=== PATIENT | male | born 1965 | race Caucasian/White ===

== ENCOUNTER 2021-04-09 03:25 | Outpatient (CLI) | payer BC, SELFPAY ==
[2021-04-09 09:07] LABS: ESR 11 mm/hr (0-20)
[2021-04-09 09:08] LABS: Abs Immature Grans 0.02 10^3/uL (0.0-0.06); Absolute Basophil Count 0.04 10^3/uL (0.0-0.2); Absolute Monocyte Count 0.45 10^3/uL (0.1-0.8); Absolute Neutrophil Count 3.35 10^3/uL (1.2-6.7); Basophils % 0.8; Eosinophils % 5.7; HCT 40.9 % (40.0-50.0); HGB 12.3 g/dL (13.5-17.5); Immature Grans % 0.4; Lymphocytes % 20.9; MCHC 30.1 % (32.0-36.0); MCV 79.9 fL (80-95); MPV 11.2 fL (8.0-11.0); Monocytes % 8.6; Neutrophils % 63.6; Nucleated RBC 0 %; Platelet Count 183 10^3/uL (130-400); RBC 5.12 10^6/uL (4.36-5.78); RDW 15.6 % (11.8-14.1); RDW-SD 44.8 fL; WBC 5.26 10^3/uL (4.4-10.8)
[2021-04-09 11:05] LABS: ALT 36 U/L (16-63); AST 16 U/L (15-37); Albumin 3.7 g/dL (3.4-5.0); Alkaline Phosphatase 95 U/L (46-116); Anion Gap 6.7 mmol/L (3-11); BUN 10 mg/dL (7-18); Bilirubin, Total 0.8 mg/dL (0.2-1.0); CO2 31.3 mmol/L (21.0-32.0); Calcium 8.8 mg/dL (8.5-10.1); Calculated LDL 126 mg/dL (<100); Chloride 104 mmol/L (98-107); Cholesterol 191 mg/dL (<200); Glucose 110 mg/dL (74-106); HDL Cholesterol 42 mg/dL (40-60); Potassium 4.7 mmol/L (3.5-5.1); Sodium 142 mmol/L (136-145); TSH (W/Ref FT4) 1.27 uIU/mL (0.36-3.74); Total Protein 7.1 g/dL (6.4-8.2); Triglyceride 115 mg/dL (<150); Vitamin B12 338 pg/mL (193-986)
[2021-04-09 16:56] LABS: Magnesium 2.1 mg/dL (1.7-2.8)
[2021-04-09 16:58] LABS: Rheumatoid Factor <8.6 IU/mL (<12.0)
[2021-04-10 11:28] LABS: Hepatitis C Ab w Rflx HCV PCR Negative (Negative)
[2021-04-10 11:36] LABS: HIV-1/2 Ag & Ab Screen Negative (Negative)
== END 2021-04-09 03:26 | disposition home or self-care (01) ==
LOC: LBO 03:26
PROVIDERS: PCP Nurse Practitioner Adult Health; Visit Provider Nurse Practitioner Adult Health
DX: R53.83 Other fatigue (principal); M25.50 Pain in unspecified joint; Z11.4 Encounter for screening for human immunodeficiency virus [HIV]; Z11.59 Encounter for screening for other viral diseases; E66.9 Obesity, unspecified; R10.32 Left lower quadrant pain; K57.90 Diverticulosis of intestine, part unspecified, without perforation or abscess without bleeding; M25.461 Effusion, right knee; M25.462 Effusion, left knee
CPT/HCPCS: 36415; 80053; 80061; 85652; 86803; 87389; 82607; 83735; 84443; 85025; 86431

== ENCOUNTER 2021-07-17 12:06 | Outpatient (RCR) | payer BC, SELFPAY ==
[2021-07-17 13:08] LABS: Abs Immature Grans 0.01 10^3/uL (0.0-0.06); Absolute Basophil Count 0.03 10^3/uL (0.0-0.2); Absolute Eosinophil Count 0.28 10^3/uL (0.0-0.7); Absolute Lymphocyte Count 1.08 10^3/uL (1.2-3.4); Absolute Monocyte Count 0.33 10^3/uL (0.1-0.8); Absolute Neutrophil Count 3.32 10^3/uL (1.2-6.7); Basophils % 0.6; Eosinophils % 5.5; HCT 40.5 % (40.0-50.0); HGB 12.4 g/dL (13.5-17.5); Immature Grans % 0.2; Lymphocytes % 21.4; MCH 24.5 pg (27.0-33.0); MCHC 30.6 % (32.0-36.0); MCV 79.9 fL (80-95); MPV 10.7 fL (8.0-11.0); Monocytes % 6.5; Neutrophils % 65.8; Nucleated RBC 0 %; Platelet Count 167 10^3/uL (130-400); RBC 5.07 10^6/uL (4.36-5.78); RDW 15.7 % (11.8-14.1); RDW-SD 44.8 fL; WBC 5.05 10^3/uL (4.4-10.8)
[2021-07-17 13:37] LABS: ALT 36 U/L (16-63); AST 17 U/L (15-37); Albumin 3.6 g/dL (3.4-5.0); Alkaline Phosphatase 94 U/L (46-116); Anion Gap 9.8 mmol/L (3-11); BUN 13 mg/dL (7-18); Bilirubin, Total 0.7 mg/dL (0.2-1.0); CO2 26.2 mmol/L (21.0-32.0); Calcium 8.6 mg/dL (8.5-10.1); Chloride 102 mmol/L (98-107); Ferritin 16 ng/mL (26-388); Glucose 175 mg/dL (74-106); Potassium 4.2 mmol/L (3.5-5.1); Sodium 138 mmol/L (136-145); Total Protein 7.4 g/dL (6.4-8.2)
[2021-07-17 14:06] LABS: Iron 34 ug/dL (65-175); Total Iron Binding Capacity 409 ug/dL (250-450); Transferrin Sat 8 % (20-55)
[2021-07-17 22:47] LABS: CEA <0.5 ng/mL (See Note)
[2021-07-23 10:21] LABS: DPYD Phenotype Normal metabolizer
== END 2021-08-07 23:59 | disposition home or self-care (01) ==
LOC: INF 12:06
PROVIDERS: PCP Nurse Practitioner Adult Health; Visit Provider Internal Medicine Hematology & Oncology
DX: C18.4 Malignant neoplasm of transverse colon (principal)
CPT/HCPCS: 36415; 80053; 81232; 82378; 82728; 83540; 83550; 85025

== ENCOUNTER 2021-08-28 01:51 | Outpatient (CLI) | payer BC, SELFPAY ==
[2021-08-28 09:10] LABS: ALT 48 U/L (16-63); AST 27 U/L (15-37); Albumin 3.6 g/dL (3.4-5.0); Alkaline Phosphatase 97 U/L (46-116); Anion Gap 7.1 mmol/L (3-11); BUN 11 mg/dL (7-18); Bilirubin, Total 1.2 mg/dL (0.2-1.0); CO2 27.9 mmol/L (21.0-32.0); CREATININE 0.9 mg/dL (0.70-1.30); Calcium 8.8 mg/dL (8.5-10.1); Chloride 103 mmol/L (98-107); Glucose 115 mg/dL (74-106); Potassium 4.2 mmol/L (3.5-5.1); Sodium 138 mmol/L (136-145); Total Protein 7.5 g/dL (6.4-8.2)
[2021-08-28 09:12] LABS: Abs Immature Grans 0.01 10^3/uL (0.0-0.06); Absolute Basophil Count 0.03 10^3/uL (0.0-0.2); Absolute Eosinophil Count 0.23 10^3/uL (0.0-0.7); Absolute Lymphocyte Count 1.05 10^3/uL (1.2-3.4); Absolute Monocyte Count 0.53 10^3/uL (0.1-0.8); Absolute Neutrophil Count 2.89 10^3/uL (1.2-6.7); Basophils % 0.6; Eosinophils % 4.9; HCT 42.2 % (40.0-50.0); HGB 13.2 g/dL (13.5-17.5); Immature Grans % 0.2; Lymphocytes % 22.2; MCH 26.5 pg (27.0-33.0); MCHC 31.3 % (32.0-36.0); MCV 84.6 fL (80-95); MPV 11.6 fL (8.0-11.0); Monocytes % 11.2; Neutrophils % 60.9; Nucleated RBC 0 %; RBC 4.99 10^6/uL (4.36-5.78); RDW 19.3 % (11.8-14.1); RDW-SD 56.3 fL; WBC 4.74 10^3/uL (4.4-10.8)
[2021-08-28 09:25] LABS: Platelet Count 98 10^3/uL (130-400)
== END 2021-08-28 01:52 | disposition home or self-care (01) ==
LOC: LBO 01:51
PROVIDERS: PCP Nurse Practitioner Adult Health; Visit Provider Internal Medicine Hematology & Oncology
DX: C18.4 Malignant neoplasm of transverse colon (principal)
CPT/HCPCS: 36415; 80053; 85025

== ENCOUNTER 2021-09-18 02:32 | Outpatient (CLI) | payer BC, SELFPAY ==
[2021-09-18 09:39] LABS: Abs Immature Grans 0.01 10^3/uL (0.0-0.06); Absolute Basophil Count 0.03 10^3/uL (0.0-0.2); Absolute Eosinophil Count 0.15 10^3/uL (0.0-0.7); Absolute Lymphocyte Count 1.19 10^3/uL (1.2-3.4); Basophils % 0.6; Eosinophils % 3.1; HCT 42.9 % (40.0-50.0); HGB 13.7 g/dL (13.5-17.5); Immature Grans % 0.2; Lymphocytes % 24.9; MCH 27.7 pg (27.0-33.0); MCHC 31.9 % (32.0-36.0); MCV 86.8 fL (80-95); MPV 10.3 fL (8.0-11.0); Monocytes % 12.6; Neutrophils % 58.6; Nucleated RBC 0 %; RBC 4.94 10^6/uL (4.36-5.78); RDW 22.4 % (11.8-14.1); WBC 4.78 10^3/uL (4.4-10.8)
[2021-09-18 09:51] LABS: Anisocytosis 2+; Diff Comment Diff Reviewed; Platelet Count 136 10^3/uL (130-400); Polychromasia Present
[2021-09-18 09:53] LABS: ALT 41 U/L (16-63); AST 27 U/L (15-37); Albumin 3.8 g/dL (3.4-5.0); Alkaline Phosphatase 110 U/L (46-116); Anion Gap 5.3 mmol/L (3-11); BUN 9 mg/dL (7-18); CO2 29.7 mmol/L (21.0-32.0); CREATININE 0.8 mg/dL (0.70-1.30); Calcium 9.3 mg/dL (8.5-10.1); Chloride 103 mmol/L (98-107); Glucose 117 mg/dL (74-106); Potassium 4.9 mmol/L (3.5-5.1); Sodium 138 mmol/L (136-145)
== END 2021-09-18 02:33 | disposition home or self-care (01) ==
LOC: LBO 02:32
PROVIDERS: PCP Nurse Practitioner Adult Health; Visit Provider Internal Medicine Hematology & Oncology
DX: C18.4 Malignant neoplasm of transverse colon (principal)
CPT/HCPCS: 36415; 80053; 85025

== ENCOUNTER 2021-10-09 12:16 | Outpatient (CLI) | payer BC, SELFPAY ==
[2021-10-09 09:25] LABS: ALT 31 U/L (16-63); AST 23 U/L (15-37); Albumin 3.6 g/dL (3.4-5.0); Alkaline Phosphatase 104 U/L (46-116); BUN 8 mg/dL (7-18); Bilirubin, Total 0.8 mg/dL (0.2-1.0); CREATININE 0.8 mg/dL (0.70-1.30); Calcium 9.1 mg/dL (8.5-10.1); Chloride 105 mmol/L (98-107); Glucose 117 mg/dL (74-106); Potassium 4.6 mmol/L (3.5-5.1); Sodium 140 mmol/L (136-145); Total Protein 7.4 g/dL (6.4-8.2)
[2021-10-09 09:29] LABS: Abs Immature Grans 0.01 10^3/uL (0.0-0.06); Absolute Basophil Count 0.03 10^3/uL (0.0-0.2); Absolute Eosinophil Count 0.16 10^3/uL (0.0-0.7); Absolute Monocyte Count 0.53 10^3/uL (0.1-0.8); Absolute Neutrophil Count 2.75 10^3/uL (1.2-6.7); Basophils % 0.7; Eosinophils % 3.5; HCT 41.5 % (40.0-50.0); HGB 13.5 g/dL (13.5-17.5); Immature Grans % 0.2; MCH 28.7 pg (27.0-33.0); MCHC 32.5 % (32.0-36.0); MCV 88.1 fL (80-95); Monocytes % 11.6; Nucleated RBC 0 %; Platelet Count 130 10^3/uL (130-400); RBC 4.71 10^6/uL (4.36-5.78); RDW 20.6 % (11.8-14.1); RDW-SD 66.1 fL; WBC 4.58 10^3/uL (4.4-10.8)
[2021-10-09 09:45] LABS: Anisocytosis 2+; Diff Comment RBC Morph Reviewed
== END 2021-10-09 12:17 | disposition home or self-care (01) ==
LOC: LBO 12:17
PROVIDERS: PCP Nurse Practitioner Adult Health; Visit Provider Internal Medicine Hematology & Oncology
DX: C18.4 Malignant neoplasm of transverse colon (principal)
CPT/HCPCS: 36415; 80053; 85025

== ENCOUNTER 2021-11-12 01:04 | Outpatient (CLI) | payer BC, SELFPAY ==
[2021-11-12 09:03] LABS: Abs Immature Grans 0.02 10^3/uL (0.0-0.06); Absolute Basophil Count 0.03 10^3/uL (0.0-0.2); Absolute Eosinophil Count 0.16 10^3/uL (0.0-0.7); Absolute Lymphocyte Count 1.02 10^3/uL (1.2-3.4); Absolute Monocyte Count 0.34 10^3/uL (0.1-0.8); Absolute Neutrophil Count 2.38 10^3/uL (1.2-6.7); Basophils % 0.8; Eosinophils % 4.1; HCT 39.8 % (40.0-50.0); HGB 13.1 g/dL (13.5-17.5); Immature Grans % 0.5; Lymphocytes % 25.8; MCH 30.7 pg (27.0-33.0); MCHC 32.9 % (32.0-36.0); MCV 93.2 fL (80-95); MPV 11.4 fL (8.0-11.0); Monocytes % 8.6; Neutrophils % 60.2; Nucleated RBC 0 %; Platelet Count 132 10^3/uL (130-400); RBC 4.27 10^6/uL (4.36-5.78); RDW 15.3 % (11.8-14.1); RDW-SD 52.7 fL; WBC 3.95 10^3/uL (4.4-10.8)
[2021-11-12 09:21] LABS: ALT 38 U/L (16-63); AST 25 U/L (15-37); Albumin 3.5 g/dL (3.4-5.0); Alkaline Phosphatase 100 U/L (46-116); Anion Gap 6.5 mmol/L (3-11); BUN 9 mg/dL (7-18); CO2 27.5 mmol/L (21.0-32.0); CREATININE 0.8 mg/dL (0.70-1.30); Calcium 8.6 mg/dL (8.5-10.1); Chloride 104 mmol/L (98-107); Glucose 134 mg/dL (74-106); Potassium 4.5 mmol/L (3.5-5.1); Sodium 138 mmol/L (136-145); Total Protein 7.1 g/dL (6.4-8.2)
[2021-11-12] MEDS: Omnipaque 350 MG/ML 100 ML BTL IJ (10:06)
[2021-11-12] MEDS: Breeza Beverage 473 ML BTL 950 ML PO (10:07)
[2021-11-12] MEDS: Omnipaque 350 MG/ML 50 ML BTL PO (10:08)
--- NOTE | 2021-11-12 10:08 | DI.CT_ITS ---
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 Pulmonary parenchyma: No consolidation or dominant measurable mass. No architectural distortion. No s uspicious pulmonary nodules. Visualized thyroid gland: Unremarkable. Mediastinum and Marry: No dominant adenopathy or fluid collection. The esophagus is unremarkable. Pleura: No effusion or pneumothorax. Heart: The heart is not dilated. No coronary artery calcifications are seen. No pericardial effusion. Pulmonary arteries: There are filling defects seen in pulmonary arteries to both the right and lower lobes. Aorta: Thoracic aorta non-dilated. Atherosclerosis. Lymph nodes: Within normal limits. Soft tissues: Bilateral gynecomastia. Bones:Within normal limits for the patient's age. No suspicious lytic or sclerotic lesions. ABDOMEN: Liver: There is diffuse decreased attenuation of the liver consistent with fatty infiltration. The l iver measures 18 cm long. No measurable mass. Portal, Superior Mesenteric, and Splenic Veins: Unremarkable. Gallbladder and Biliary Tract: Cholelithiasis. No biliary ductal dilatation. Pancreas: Normal density, no abnormal calcifications or inflammatory process. Spleen: Normal. Adrenals: No masses seen. Kidneys: Normal size, contour and axis. No radiodense stones or obstructive uropathy. No masses seen. Abdominal Aorta: Abdominal portion non-dilated. Minimal atherosclerosis. Bowel: No obstruction or bowel wall thickening. The patient is status post partial colectomy with re moval of the cecum ascending colon and proximal transverse colon. Peritoneal Cavity: No ascites, collection or mesenteric inflammatory response. No free air. Lymph Nodes: Within normal limits. Bones: Within normal limits for the patient's age. Ankylosis of the sacroiliac joints is noted. No suspicious lytic or sclerotic lesions are present. Soft Tissues: Unremarkable. PELVIS: Bladder: Symmetric distention, no gross wall thickening. Reproductive Organs: Unremarkable as visualized. Lymph Nodes: Within normal limits. Bones: Within normal limits. IMPRESSION: 1. Status post partial colectomy. 2. No evidence of abdominal, pelvic or thoracic metastatic disease. 3. Hepatomegaly and hepatic steatosis. 4. Cholelithiasis. 5. Filling defects seen in pulmonary artery branches to both lower lobes consistent with pulmonary em boli. No evidence of right heart strain 6. Results of this exam have been verbally communicated with provider. RADIATION DOSE DELIVERED: 2,986.45mGy.cm Total DLP DATA REPOSITORY: All CT scans at this facility are submitted to the National Radiology Data Registry (NRDR) Dose Index Registry (DIR) with the [employer] (ACR). RADIATION OPTIMIZATION: All CT scans at this facility use at least one of these dose optimization te chniques: automated exposure control; mA and/or kV adjustment per patient size (includes targeted exa ms where dose is matched to clinical indication); or iterative reconstruction.
== END 2021-11-12 01:24 ==
PROVIDERS: PCP Nurse Practitioner Adult Health; Visit Provider Nurse Practitioner Adult Health
DX: C18.4 Malignant neoplasm of transverse colon (principal); K76.0 Fatty (change of) liver, not elsewhere classified; K80.20 Calculus of gallbladder without cholecystitis without obstruction; Z90.49 Acquired absence of other specified parts of digestive tract; R16.0 Hepatomegaly, not elsewhere classified
CPT/HCPCS: 74177; 80053; 71260; 85025; J3490; Q9967

== ENCOUNTER 2021-11-20 14:12 | Outpatient (RCR) | payer BC, SELFPAY ==
[2021-11-20 15:30] LABS: Abs Immature Grans 0.01 10^3/uL (0.0-0.06); Absolute Basophil Count 0.04 10^3/uL (0.0-0.2); Absolute Lymphocyte Count 1.11 10^3/uL (1.2-3.4); Absolute Monocyte Count 0.37 10^3/uL (0.1-0.8); Absolute Neutrophil Count 2.49 10^3/uL (1.2-6.7); Basophils % 0.9; Eosinophils % 4.7; HCT 40.3 % (40.0-50.0); HGB 13.4 g/dL (13.5-17.5); Immature Grans % 0.2; Lymphocytes % 26.3; MCHC 33.3 % (32.0-36.0); MCV 93.3 fL (80-95); MPV 11.9 fL (8.0-11.0); Monocytes % 8.8; Neutrophils % 59.1; Platelet Count 155 10^3/uL (130-400); RBC 4.32 10^6/uL (4.36-5.78); RDW 14.3 % (11.8-14.1); RDW-SD 49.8 fL; WBC 4.22 10^3/uL (4.4-10.8)
[2021-11-23 09:51] LABS: CEA <0.5 ng/mL (See Note)
== END 2021-12-05 23:59 | disposition home or self-care (01) ==
LOC: INF 14:12
PROVIDERS: PCP Nurse Practitioner Adult Health; Visit Provider Internal Medicine Hematology & Oncology
DX: C18.2 Malignant neoplasm of ascending colon (principal)
CPT/HCPCS: 36415; 82378; 85025

== ENCOUNTER 2022-02-11 10:15 | Outpatient (CLI) | payer BC, SELFPAY ==
--- NOTE | 2022-02-11 10:30 | DI.RAD_ITS ---
Exam(s) XR PAIN CLINIC LUMBAR SP 2V EXAM: XR PAIN CLINIC LUMBAR SP 2V CLINICAL HISTORY: dx:Intercostal neuralgia TECHNIQUE: 2D and realtime digital imaging was performed. Radiologist not present. CONTRAST MATERIAL: None. COMPARISON: No exams were available for comparison FINDINGS: Fluoroscopy was provided for pain management therapy. Please refer to procedure report or details. Cumulative dose: Ka,r=42.71 mGy IMPRESSION: RADIATION DOSE DELIVERED:
[2022-02-11 10:34] VITALS: BP 114/67; PULSE 74; RESP 18; TEMP 36.7; O2SAT 97
[2022-02-11] MEDS: Omnipaque 240 MG/ML 50 ML BTL IJ (11:36)
[2022-02-11] MEDS: Bupivacaine 0.25% Pres-Free 30 ML VIAL IJ (11:36)
[2022-02-11 11:41] VITALS: BP 144/88; PULSE 69; RESP 20; O2SAT 97
--- NOTE | 2022-02-11 12:53 | PDOC.PAIN_ITS ---
Pain Clinic Procedure Note Procedure Note Procedure Note: Left 11th and 12th Intercostal Nerve Blocks Huseyin Hernandez has been referred to the [facility] for intra- articular lumbar facet joint injection. Procedure Date: 02/11/2022 COMMENTS: The patient was previously evaluated in our office. Pre-procedure pain VAS = 6/10 Dx: Intercostal neuralgia Patient was interviewed and the medical record reviewed. There were no medical, pharmacologic, radiographic or other structural contraindications to attempting fluoroscopically guided intercostal nerve blocks. Risks and expected side effects as well as potential benefit of the procedure were reviewed and voiced concerns addressed. The printed consent form was signed and witnessed. Standard time-out procedure was performed. Patient was placed in the prone position on the fluoroscopy table and automated blood pressure cuff and pulse oximeter applied. The skin entry point for approaching left 11th and 12th intercostal nerves were identified under the most advantageous fluoroscopic view and marked. Following thorough Chlorhexadine preparation of the skin and draping and 1% lidocaine infiltration of the skin entry point and subcutaneous tissues, a 22 gauge 3.5 spinal needle was placed under fluoroscopic guidance to the left 12th rib 5 cm lateral to the beginning of the rib. The needle was then walked down and off the inferior aspect of the rib and correct positioning was confirmed by a clear neurogram resulting from the injection of 0.25ml Omnipaque 240. Next 5 mg of Dexamethasone (10 mg/cc) was injected and this was followed by 3 cc of 0.25% Bupivacaine with an initial reproduction of a significant component of the usual pain. The needle was removed and the procedure was repeated at the left 11th rib. Vital signs were stable throughout the procedure and were as recorded in the docflowsheet by the nursing staff. If given, dosages of intravenous drugs for anxiolysis and analgesia were documented in MAR. Follow up plans and appointments were discussed. Post procedure instruction was given as documented in nursing documentation and having met discharge criteria,was discharged from the Pain Management Center. COMMENTS: Post-procedure pain VAS to the chest was 0/10 Harry Gomes DO, MPH [facility]-Pain Management [facility] for [facility] CC: Zenia Taveras APRN
== END 2022-02-11 10:16 | disposition home or self-care (01) ==
LOC: PC 10:15
PROVIDERS: PCP Nurse Practitioner Adult Health; Visit Provider Preventive Medicine Occupational Medicine
DX: G58.8 Other specified mononeuropathies (principal)
CPT/HCPCS: 64421; 72100; Q9967

== ENCOUNTER 2022-05-05 11:15 | Outpatient (CLI) | payer BC, SELFPAY ==
[2022-05-05 12:46] LABS: Abs Immature Grans 0.01 10^3/uL (0.0-0.06); Absolute Basophil Count 0.02 10^3/uL (0.0-0.2); Absolute Eosinophil Count 0.28 10^3/uL (0.0-0.7); Absolute Lymphocyte Count 1.03 10^3/uL (1.2-3.4); Absolute Monocyte Count 0.51 10^3/uL (0.1-0.8); Absolute Neutrophil Count 2.86 10^3/uL (1.2-6.7); Basophils % 0.4; Eosinophils % 5.9; HCT 43.8 % (40.0-50.0); HGB 14.8 g/dL (13.5-17.5); Immature Grans % 0.2; Lymphocytes % 21.9; MCHC 33.8 % (32.0-36.0); MCV 89 fL (80-95); MPV 11.3 fL (8.0-11.0); Monocytes % 10.8; Neutrophils % 60.8; Platelet Count 140 10^3/uL (130-400); RBC 4.94 10^6/uL (4.36-5.78); RDW 13.1 % (11.8-14.1); RDW-SD 42.5 fL; WBC 4.71 10^3/uL (4.4-10.8)
[2022-05-05 13:41] LABS: ALT 44 U/L (16-63); AST 26 U/L (15-37); Albumin 3.7 g/dL (3.4-5.0); Alkaline Phosphatase 94 U/L (46-116); Anion Gap 7.1 mmol/L (3-11); BUN 11 mg/dL (7-18); Bilirubin, Total 1.4 mg/dL (0.2-1.0); CO2 28.9 mmol/L (21.0-32.0); CREATININE 0.9 mg/dL (0.70-1.30); Calcium 9.3 mg/dL (8.5-10.1); Chloride 102 mmol/L (98-107); Estimated GFR 101.49 (mL/min/1.73m2); Glucose 105 mg/dL (74-106); Potassium 4.5 mmol/L (3.5-5.1); Sodium 138 mmol/L (136-145); Total Protein 7.7 g/dL (6.4-8.2); Vitamin B12 330 pg/mL (193-986)
[2022-05-05 22:53] LABS: CEA <0.5 ng/mL (See Note)
== END 2022-05-05 11:16 | disposition home or self-care (01) ==
LOC: LBO 11:27
PROVIDERS: PCP Nurse Practitioner Adult Health; Visit Provider Internal Medicine Hematology & Oncology
DX: E66.9 Obesity, unspecified (principal); R73.01 Impaired fasting glucose; C18.2 Malignant neoplasm of ascending colon
CPT/HCPCS: 36415; 80053; 82378; 82607; 83036; 85025

== ENCOUNTER → 2022-06-03 03:13 | Outpatient (CLI) | payer BC, SELFPAY ==
--- NOTE | 2022-06-03 08:18 | DI.RAD_ITS ---
Exam(s) XR LUMBAR SPINE COMPLETE EXAM: XR LUMBAR SPINE COMPLETE CLINICAL HISTORY: assess scoliosis; alignment,h/o scoliosis,weakness lt leg,paresthesias. TECHNIQUE: 2D digital imaging was performed of the lumbar spine. Five images were obtained. AP, la teral, right oblique, left oblique and L5-S1 spot views were obtained. COMPARISON: No exams were available for comparison FINDINGS: BONES: No fracture or destructive lesion. Vertebral bodies are unremarkable. No facet hypertrophy marcus ntified. There is DISH in the lumbar spine. DISKS: Intervertebral disc spaces are maintained. ALIGNMENT: Lumbar spinal alignment is within normal limits. No spondylolysis or spondylolisthesis. SOFT TISSUE: There are gallstones present. IMPRESSION: 1. No acute abnormality. 2. Cholelithiasis. DATA REPOSITORY: RADIATION DOSE DELIVERED:
--- NOTE | 2022-06-03 08:18 | DI.RAD_ITS ---
Exam(s) XR KNEE RT 3V AP,LAT,ANABEL EXAM: XR KNEE RT 3V AP,LAT,ANABEL CLINICAL HISTORY: assess OA,bilat knee pain, m25.561. TECHNIQUE: 2D digital imaging was performed of the right knee. Three views obtained. Merchant, AP, l ateral and PA tunnel views were obtained. COMPARISON: No exams were available for comparison FINDINGS: BONES: No acute fracture is present. No bony destructive lesion is seen. Enthesophytes are seen at th e anterior patella. JOINTS: The knee is normally aligned. No joint effusion is seen. There is mild periarticular spurring at the posterior patella. The joint spaces are otherwise well maintained. SOFT TISSUE: Normal. IMPRESSION: Mild osteoarthritis of the knee. DATA REPOSITORY: RADIATION DOSE DELIVERED:
--- NOTE | 2022-06-03 08:18 | DI.RAD_ITS ---
Exam(s) XR KNEE LT 3V AP,LAT,ANABEL EXAM: XR KNEE LT 3V AP,LAT,ANABEL CLINICAL HISTORY: Assess oA,bilat knee pain, m25.562. TECHNIQUE: 2D digital imaging was performed of the left knee. Three images were obtained. Merchant ,AP, lateral and PA tunnel views were obtained. COMPARISON: CR XR KNEE RT 3V AP,LAT,ANABEL from 06/03/2022 FINDINGS: BONES: No acute fracture is present. No bony destructive lesion is seen. There are enthesophytes see n at the anterior patella. JOINTS: The knee is normally aligned. No joint effusion is seen. There is mild spurring of the supervisor show operations ior patella. Mild narrowing of the medial femoral tibial joint space. SOFT TISSUE: Normal. IMPRESSION: Mild degenerative changes of the left knee. DATA REPOSITORY: RADIATION DOSE DELIVERED:
--- NOTE | 2022-06-03 08:18 | DI.RAD_ITS ---
Exam(s) XR THORACIC SPINE COMPLETE EXAM: XR THORACIC SPINE COMPLETE CLINICAL HISTORY: assess scoliosis; alignment,h/o scoliosis, weakness lt leg, paresthesia. TECHNIQUE: 2D digital imaging was performed of the thoracic spine. Views were obtained. AP, swimm er's and lateral views were obtained. COMPARISON: No exams were available for comparison FINDINGS: BONES: There is no fracture or destructive lesion. The vertebral bodies and posterior elements are un remarkable. There is DISH seen throughout the thoracic spine. DISKS:There is a very mild right convex curvature of the thoracic spine. Interverebral disc spaces a re maintained. SOFT TISSUE: Visualized lungs are clear. IMPRESSION: Mild right convex thoracic scoliosis. DATA REPOSITORY: RADIATION DOSE DELIVERED:
== END ==
PROVIDERS: PCP Nurse Practitioner Adult Health; Visit Provider Nurse Practitioner Adult Health
DX: R20.2 Paresthesia of skin (principal); Z87.39 Personal history of other diseases of the musculoskeletal system and connective tissue; M17.0 Bilateral primary osteoarthritis of knee; M41.9 Scoliosis, unspecified; K80.20 Calculus of gallbladder without cholecystitis without obstruction
CPT/HCPCS: 73562; 72072; 72110

== ENCOUNTER 2022-06-23 13:59 | Outpatient (CLI) | payer BC, SELFPAY ==
[2022-06-23 14:11] VITALS: BP 109/59; PULSE 79; RESP 20; TEMP 36.6; O2SAT 96
--- NOTE | 2022-06-23 14:51 | PDOC.PAIN_ITS ---
Date of service: 06/23/22 Time of Service: 14:51 Pain Clinic Procedure Note Procedure Note Procedure Note: ULTRASOUND GUIDED LEFT ILIOINGUINAL NERVE BLOCK Pre-Procedural Evaluation: Huseyin Hernandez has been referred to the Pain Management Center for an Ultrasound Guided left IIlioinguinal nerve block for a chief complaint of anterior hip/groin pain. Pre-procedure Pain Score: 5/10 Patient was interviewed and the medical record reviewed. There were no medical, pharmacologic, radiographic, or other structural contraindications to preforming an ultrasound guided injection. Risks and expected side effects as well as potential benefits of the procedure were reviewed. The patient consent form was signed and witnessed. Standard time-out procedure was performed. The use of direct ultrasound visualization of the needle (rather than a non- guided injection) was required to increase patient safety by excluding inadvertent intramuscular, intratendinous, or intraneural needle placement and minimizing bleeding by avoiding osteochondral or vascular injury from the needle. Additionally, the increased accuracy of placement may increase clinical effectiveness and will allow higher diagnostic specificity when evaluating effectiveness of this injection. Procedure Description: The patient was placed in the supine position and automated blood pressure cuff and pulse oximeter applied for monitoring during the procedure and recorded in the medical record. Pre-injection ultrasound scanning of the area of interest was performed using linear transducer, identifying relevant anatomy, landmarks, and neurovascular structures allowing for optimal needle path. The site was then prepared in the usual sterile fashion, using thorough Chlorhexadine preparation of the skin and sterile draping. The same ultrasound transducer was then passed into the sterile field using sterile probe cover and sterile ultrasound gel. The injection target was again visualized. Skin and subcutaneous tissues were anesthetized with 2 mL of 1% Lidocaine. A 22 G Pajunk ultrasound inch needle was placed under live ultrasound guidance, using an in-plane approach, to the target area. After visualization of the needle tip at the target area, 2 cc of 2% Lidocaine was delivered after negative aspiration for blood. I then injected 40 mg of Depomedrol (40 mg/cc) and then followed this with 4 cc of 2% Lidocaine. Ultrasound images were captured and stored for documentation purposes. Post-procedure Pain Score: 4/10 Vital signs were stable throughout the procedure and were as recorded in the docflowsheet by the nursing staff. Follow up plans and appointments were discussed with the patient.Post procedure instruction was given as documented in nursing documentation and having met discharge criteria, they were discharged from the Pain Management Center. COMMENTS: If this procedure is benefitial, it can be completed up to 3 times per 12 months. Harry Gomes DO, MPH [facility]-Pain Management [facility]-Center for Pain Management
[2022-06-23 14:56] VITALS: PULSE 78; O2SAT 99
[2022-06-23] MEDS: methylPREDNISolone ACETATE 40 MG/ML VIAL IJ (15:04)
[2022-06-23] MEDS: Lidocaine 2% Pres-Free 5 ML VIAL IJ (15:04)
== END 2022-06-23 14:00 | disposition home or self-care (01) ==
LOC: PC 13:59
PROVIDERS: PCP Nurse Practitioner Adult Health; Visit Provider Preventive Medicine Occupational Medicine
DX: M25.552 Pain in left hip (principal)
CPT/HCPCS: 64425; 76942; J1030

== ENCOUNTER 2022-09-21 00:34 | Outpatient (CLI) | payer BC, SELFPAY ==
--- NOTE | 2022-09-21 | DI.CT_ITS ---
Exam(s) CT CHEST/ABD/PEL W EXAM: CT CHEST/ABD/PEL W CLINICAL HISTORY: H/O COLON CA,S/P RESECTION,CHEMO,RESTAGING EXAM. TECHNIQUE: Imaging Protocol: Axial computed tomography images with coronal and sagittal reformatted images were created and reviewed CONTRAST MATERIAL: Intravenous: Omnipaque 350 Contrast volume:100 ml Oral: Yes. Oral contras. COMPARISON: CT CT CHEST/ABD/PEL W from 11/12/2021 FINDINGS: CHEST: LUNGS: There are no infiltrates nor pleural effusions. No ominous pulmonary nodules. No significant focal findings in the trachea and mainstem bronchi. No bronchiectasis.. MEDIASTINUM: There is no new hilar nor mediastinal adenopathy. Single small subcarinal lymph node is unchanged.Visualized thyroid unremarkable. CARDIAC: Heart size is normal. There is no pericardial effusion.Caliber of the thoracic aorta is wit hin normal limits. OSSEOUS: No significant osseous lesions.. ABDOMEN: There is no ascites. LIVER: Hepatomegaly and hepatic steatosis again noted but no discrete focal hepatic lesions. GALLBLADDER/BILIARY: Multiple gallstones again noted. No gallbladder wall edema nor pericholecystic fluid. CBD is not dilated. PANCREAS: No evidence of pancreatic mass nor dilatation of the pancreatic duct. SPLEEN: Spleen is not enlarged. There are no intrasplenic lesions. Splenic and portal veins are vela nt. ADRENALS: There are no significant adrenal masses. KIDNEYS: No calculi nor hydronephrosis. No solid renal masses. No cysts evident. ABDOMINAL AORTA: Abdominal aorta is not enlarged. LYMPH NODES: There is no retroperitoneal nor paraaortic adenopathy. ABDOMINAL WALL: No evidence of significant anterior abdominal wall nor inguinal hernia. GI: There is again noted evidence of right hemicolectomy. No evidence of bowel obstruction. No abno rmality seen at the midline anastomosis. No free air. No free fluid. PELVIS: LYMPH NODES: There is no intrapelvic nor inguinal adenopathy. GI: Appendix surgically absent.No significant sigmoid diverticular disease. URINARY BLADDER: No calculi nor masses evident REPRODUCTIVE: Prostate gland not enlarged. Seminal vesicles unremarkable.z OSSEOUS: No significant osseous lesions. No fractures. Ankylosis of the sacroiliac joints noted. IMPRESSION: 1. Again noted is evidence of right hemicolectomy. There is no abnormality evident at the midline sm [id number] bowel anastomosis. Low the oral contrast has not yet passed into the colon at time o f image acquisition, there is no evidence to suggest small-bowel obstruction here. 2. Hepatic steatosis and hepatomegaly again noted but no evidence of metastatic disease in liver nor elsewhere in the abdomen and pelvis and there is no ascites. No adenopathy. 3. Multiple gallstones again noted in the gallbladder lumen. No evidence of acute cholecystitis. 4. No significant intrathoracic findings. No lung nodules nor pleural effusions. No new intrathorac ic adenopathy. 5. No significant osseous lesions. No fractures. RADIATION DOSE DELIVERED: 2,877.65mGy.cm Total DLP DATA REPOSITORY: All CT scans at this facility are submitted to the National Radiology Data Registry (NRDR) Dose Index Registry (DIR) with the [employer] (ACR). RADIATION OPTIMIZATION: All CT scans at this facility use at least one of these dose optimization te chniques: automated exposure control; mA and/or kV adjustment per patient size (includes targeted exa ms where dose is matched to clinical indication); or iterative reconstruction.
[2022-09-21] MEDS: Barium Sulfate 2% W/V-Berry Smoothie 450 ML BTL PO ×2 (13:12→13:13)
[2022-09-21 13:35] LABS: Abs Immature Grans 0.01 10^3/uL (0.0-0.06); Absolute Basophil Count 0.03 10^3/uL (0.0-0.2); Absolute Eosinophil Count 0.24 10^3/uL (0.0-0.7); Absolute Lymphocyte Count 1.33 10^3/uL (1.2-3.4); Absolute Monocyte Count 0.42 10^3/uL (0.1-0.8); Absolute Neutrophil Count 3.52 10^3/uL (1.2-6.7); Basophils % 0.5; Eosinophils % 4.3; HCT 45.9 % (40.0-50.0); HGB 15.2 g/dL (13.5-17.5); Immature Grans % 0.2; MCHC 33.1 % (32.0-36.0); MCV 87 fL (80-95); MPV 11.5 fL (8.0-11.0); Monocytes % 7.6; Neutrophils % 63.4; Platelet Count 147 10^3/uL (130-400); RBC 5.25 10^6/uL (4.36-5.78); RDW 14.2 % (11.8-14.1); RDW-SD 45.3 fL; WBC 5.55 10^3/uL (4.4-10.8)
[2022-09-21 13:49] LABS: ALT 49 U/L (16-63); AST 22 U/L (15-37); Alkaline Phosphatase 91 U/L (46-116); Anion Gap 7.8 mmol/L (3-11); BUN 17 mg/dL (7-18); Bilirubin, Total 1.3 mg/dL (0.2-1.0); CO2 27.2 mmol/L (21.0-32.0); Calcium 9.4 mg/dL (8.5-10.1); Chloride 102 mmol/L (98-107); Estimated GFR 89.44 (mL/min/1.73m2); Glucose 111 mg/dL (74-106); Potassium 4.3 mmol/L (3.5-5.1); Sodium 137 mmol/L (136-145); Total Protein 7.4 g/dL (6.4-8.2)
[2022-09-21] MEDS: Omnipaque 350 MG/ML 100 ML BTL IJ (15:41)
[2022-09-21] MEDS: Normal Saline - Diluent 50 ML VIAL IJ (15:42)
[2022-09-21 22:57] LABS: CEA <0.5 ng/mL (See Note)
== END 2022-09-21 00:54 ==
LOC: DI 00:34
PROVIDERS: PCP Family Medicine; Visit Provider Internal Medicine Hematology & Oncology
DX: K76.0 Fatty (change of) liver, not elsewhere classified (principal); R16.0 Hepatomegaly, not elsewhere classified; K80.20 Calculus of gallbladder without cholecystitis without obstruction
CPT/HCPCS: 74177; 80053; 71260; 82378; 85025; J3490

== ENCOUNTER 2023-03-30 04:09 | Outpatient (CLI) | payer BC, SELFPAY ==
[2023-03-30 22:51] LABS: CEA 0.6 ng/mL (See Note)
== END 2023-03-30 04:10 | disposition home or self-care (01) ==
LOC: LBO 04:09
PROVIDERS: PCP Family Medicine; Visit Provider Internal Medicine Hematology & Oncology
DX: C18.4 Malignant neoplasm of transverse colon (principal)
CPT/HCPCS: 36415; 82378

== ENCOUNTER → 2023-10-11 01:41 | Outpatient (CLI) | payer BC, SELFPAY ==
--- NOTE | 2023-10-11 | DI.CT_ITS ---
Exam(s) CT CHEST/ABD/PEL W EXAM: CT CHEST/ABD/PEL W CLINICAL HISTORY: COLON CA,C18.4,F/U SURVEILLANCE TECHNIQUE: Imaging Protocol: Axial computed tomography images with coronal and sagittal reformatted images were created and reviewed CONTRAST MATERIAL: Intravenous: Omnipaque 350 Contrast volume:100 mL Oral: Yes COMPARISON: CT CT CHEST/ABD/PEL W from 11/12/[address] CHEST/ABD/PEL W from 09/21/2022 FINDINGS: CHEST: Tracheobronchial tree: Patent where visualized. Pulmonary parenchyma: No consolidation or dominant measurable mass. No architectural distortion. Visualized thyroid gland: Unremarkable. Mediastinum and Marry: No dominant adenopathy or fluid collection. The esophagus is unremarkable. Pleura: No effusion or pneumothorax. Heart: The heart is not dilated. No coronary artery calcifications are seen. No pericardial effusion. Pulmonary arteries: No pulmonary emboli are identified. Aorta: Thoracic aorta non-dilated. No evidence of dissection. Mild atherosclerotic calcification. Lymph nodes: Within normal limits. Soft tissues: Mild gynecomastia. Bones:Within normal limits for the patient's age. No aggressive osseous lesions. ABDOMEN: Liver: There is diffuse fatty infiltration of the liver. No measurable mass. Portal, Superior Mesenteric, and Splenic Veins: Unremarkable. Gallbladder and Biliary Tract: Cholelithiasis. No biliary ductal dilatation. Pancreas: Normal density, no abnormal calcifications or inflammatory process. Spleen: Normal. Adrenals: No masses seen. Kidneys: Normal size, contour and axis. No radiodense stones or obstructive uropathy. No masses seen. Abdominal Aorta: Abdominal portion non-dilated. Minimal atherosclerotic calcification is seen. Bowel: There again seen findings of a right hemicolectomy. The anastomosis is unremarkable. No jesús l wall thickening or obstruction is present. Peritoneal Cavity: No ascites, collection or mesenteric inflammatory response. No free air. Lymph Nodes: Within normal limits. Bones: Within normal limits for the patient's age. No aggressive osseous lesions. Soft Tissues: Unremarkable. PELVIS: Bladder: Symmetric distention, no gross wall thickening. Reproductive Organs: Unremarkable as visualized. Lymph Nodes: Within normal limits. Bones: Within normal limits. IMPRESSION: 1. No evidence of abdominal, pulmonary or pelvic metastatic disease. 2. Status post right hemicolectomy. 3. No acute pulmonary, abdominal or pelvic process. 4. Incidental finding seen in the abdomen and pelvis as described above. RADIATION DOSE DELIVERED: Total DLP DATA REPOSITORY: All CT scans at this facility are submitted to the National Radiology Data Registry (NRDR) Dose Index Registry (DIR) with the [employer] (ACR). RADIATION OPTIMIZATION: All CT scans at this facility use at least one of these dose optimization te chniques: automated exposure control; mA and/or kV adjustment per patient size (includes targeted exa ms where dose is matched to clinical indication); or iterative reconstruction.
[2023-10-11] MEDS: Barium Sulfate 2% W/V-Berry Smoothie 450 ML BTL PO (08:43)
[2023-10-11] MEDS: Barium Sulfate 2% W/V-Creamy Vanilla Smoothie 450 ML BTL PO (08:44)
[2023-10-11 08:51] LABS: Abs Immature Grans 0.02 10^3/uL (0.0-0.06); Absolute Basophil Count 0.03 10^3/uL (0.0-0.2); Absolute Eosinophil Count 0.19 10^3/uL (0.0-0.7); Absolute Lymphocyte Count 0.87 10^3/uL (1.2-3.4); Absolute Monocyte Count 0.31 10^3/uL (0.1-0.8); Absolute Neutrophil Count 2.29 10^3/uL (1.2-6.7); Basophils % 0.8; Eosinophils % 5.1; HCT 43.2 % (40.0-50.0); HGB 14.5 g/dL (13.5-17.5); Immature Grans % 0.5; Lymphocytes % 23.5; MCH 29.1 pg (27.0-33.0); MCHC 33.6 % (32.0-36.0); MCV 87 fL (80-95); MPV 11.8 fL (8.0-11.0); Monocytes % 8.4; Neutrophils % 61.7; Platelet Count 122 10^3/uL (130-400); RBC 4.98 10^6/uL (4.36-5.78); RDW 12.7 % (11.8-14.1); RDW-SD 39.9 fL; WBC 3.71 10^3/uL (4.4-10.8)
[2023-10-11 09:13] LABS: ALT 41 U/L (16-63); AST 22 U/L (15-37); Albumin 3.4 g/dL (3.4-5.0); Alkaline Phosphatase 94 U/L (46-116); Anion Gap 9.7 mmol/L (3-11); BUN 12 mg/dL (7-18); Bilirubin, Total 1.1 mg/dL (0.2-1.0); CO2 26.3 mmol/L (21.0-32.0); CREATININE 0.9 mg/dL (0.70-1.30); Chloride 104 mmol/L (98-107); Estimated GFR 100.24 (mL/min/1.73m2); Glucose 142 mg/dL (74-106); Potassium 4.5 mmol/L (3.5-5.1); Sodium 140 mmol/L (136-145)
[2023-10-11] MEDS: Omnipaque 350 MG/ML 500 ML BTL-Imaging package IJ (10:22)
[2023-10-11] MEDS: Normal Saline - Diluent 50 ML VIAL IJ (10:24)
[2023-10-11 20:41] LABS: CEA 0.7 ng/mL (See Note)
== END ==
PROVIDERS: PCP Family Medicine; Visit Provider Nurse Practitioner Family
DX: C18.4 Malignant neoplasm of transverse colon (principal); Z98.890 Other specified postprocedural states
CPT/HCPCS: 74177; 80053; 71260; 82378; 85025

== ENCOUNTER 2024-05-02 09:29 | Outpatient (CLI) | payer BC, SELFPAY ==
[2024-05-02 09:14] LABS: Abs Immature Grans 0.02 10^3/uL (0.0-0.06); Absolute Basophil Count 0.04 10^3/uL (0.0-0.2); Absolute Eosinophil Count 0.27 10^3/uL (0.0-0.7); Absolute Lymphocyte Count 1.18 10^3/uL (1.2-3.4); Absolute Monocyte Count 0.47 10^3/uL (0.1-0.8); Absolute Neutrophil Count 3.66 10^3/uL (1.2-6.7); Basophils % 0.7 %; Eosinophils % 4.8 %; HCT 46.5 % (40.0-50.0); HGB 15.3 g/dL (13.5-17.5); Immature Grans % 0.4 %; Lymphocytes % 20.9 %; MCH 30.2 pg (27.0-33.0); MCHC 32.9 % (32.0-36.0); MCV 92 fL (80-95); MPV 11.3 fL (8.0-11.0); Monocytes % 8.3 %; Neutrophils % 64.9 %; Platelet Count 145 10^3/uL (130-400); RBC 5.07 10^6/uL (4.36-5.78); RDW-SD 43.5 fL; WBC 5.64 10^3/uL (4.4-10.8)
[2024-05-02 09:33] LABS: ALT 40 U/L (16-63); AST 21 U/L (15-37); Albumin 3.4 g/dL (3.4-5.0); Alkaline Phosphatase 89 U/L (46-116); Anion Gap 5.3 mmol/L (3-11); BUN 11 mg/dL (7-18); Bilirubin, Total 1.06 mg/dL (0.2-1.0); CO2 28.7 mmol/L (21.0-32.0); CREATININE 0.9 mg/dL (0.70-1.30); Calcium 9.1 mg/dL (8.5-10.1); Chloride 103 mmol/L (98-107); Estimated GFR 100.24 (mL/min/1.73m2); Glucose 110 mg/dL (74-106); Potassium 4.6 mmol/L (3.5-5.1); Sodium 137 mmol/L (136-145); Total Protein 7.3 g/dL (6.4-8.2)
[2024-05-02 18:42] LABS: CEA <0.5 ng/mL (See Note)
== END 2024-05-02 09:30 | disposition home or self-care (01) ==
LOC: LBO 09:30
PROVIDERS: PCP Family Medicine; Visit Provider Internal Medicine Hematology & Oncology
DX: C18.4 Malignant neoplasm of transverse colon (principal)
CPT/HCPCS: 36415; 80053; 82378; 85025

== ENCOUNTER 2024-10-31 01:05 | Outpatient (CLI) | payer BC, SELFPAY ==
--- NOTE | 2024-10-31 | DI.CT_ITS ---
Exam(s) CT CHEST/ABD/PEL W EXAM: CT CHEST/ABD/PEL W CLINICAL HISTORY: C18.4 Stage lll colon CA, s/p resection, CA transverse colon. TECHNIQUE: Imaging Protocol: Axial computed tomography images with coronal and sagittal reformatted images were created and reviewed. Computer aided detection (CAD) was utilized. CONTRAST MATERIAL: Intravenous: Omnipaque 350 Contrast volume:100 ml Oral: yes/900 mL COMPARISON: CT CT CHEST/ABD/PEL W from 10/11/2023 FINDINGS: CHEST: Pulmonary parenchyma: No consolidation. No dominant measurable mass. Tracheobronchial tree: No bronchiectasis. No mucous plugging.No bronchial wall thickening. Pleura: No effusion or pneumothorax. Mediastinum: Within normal limits. Pulmonary arteries: No visible emboli. Cardiovascular: No pericardial effusion. Thoracic aorta non-dilated. Bones: Unremarkable for age. No lytic or blastic lesions.No compression fractures. Soft tissues: Unre mild bilateral gynecomastia. ABDOMEN and PELVIS: Liver: No moderate hepatic steatosis.. No suspicious mass. Gallbladder and biliary tract: Cholelithiasis. No biliary dilatation. Pancreas: Normal density, no abnormal calcifications or inflammatory process. Spleen: Normal. Kidneys: Normal size, contour and axis. No radiodense stones. No obstructive uropathy. No suspicious masses seen. Adrenal glands: No masses seen. Aorta: Abdominal portion non-dilated. Lymph nodes: Within normal limits. Soft tissues: Unremarkable. Bladder: Unremarkable. Bowel: Right hemicolectomy. Anastomosis is unremarkable. Normal quantity of stool. No obstruction or bowel wall thickening. Peritoneal cavity: No ascites. No focal collection. No mesenteric inflammatory response. No free ai r. Bones: Unremarkable for age. Reproductive organs: Unremarkable for age. IMPRESSION: Status post right hemicolectomy. No evidence of recurrence mass. No evidence of metastatic disease or other acute abnormality in the chest, abdomen or pelvis. RADIATION DOSE DELIVERED: 1,436.44mGy.cm Total DLP DATA REPOSITORY: All CT scans at this facility are submitted to the National Radiology Data Registry (NRDR) Dose Index Registry (DIR) with the [employer] (ACR). RADIATION OPTIMIZATION: All CT scans at this facility use at least one of these dose optimization te chniques: automated exposure control; mA and/or kV adjustment per patient size (includes targeted exa ms where dose is matched to clinical indication); or iterative reconstruction.
[2024-10-31] MEDS: Barium Sulfate 2% W/V-Berry Smoothie 450 ML BTL PO ×2 (08:59→09:00)
[2024-10-31 09:31] LABS: Abs Immature Grans 0.01 10^3/uL (0.0-0.06); Absolute Basophil Count 0.03 10^3/uL (0.0-0.2); Absolute Eosinophil Count 0.16 10^3/uL (0.0-0.7); Absolute Lymphocyte Count 1.03 10^3/uL (1.2-3.4); Absolute Monocyte Count 0.36 10^3/uL (0.1-0.8); Absolute Neutrophil Count 3.82 10^3/uL (1.2-6.7); Basophils % 0.6 %; HCT 45.9 % (40.0-50.0); HGB 15.1 g/dL (13.5-17.5); Immature Grans % 0.2 %; MCH 29.7 pg (27.0-33.0); MCHC 32.9 % (32.0-36.0); MCV 90 fL (80-95); MPV 11.5 fL (8.0-11.0); Monocytes % 6.7 %; Neutrophils % 70.5 %; Platelet Count 139 10^3/uL (130-400); RBC 5.09 10^6/uL (4.36-5.78); RDW 12.9 % (11.8-14.1); RDW-SD 42.5 fL; WBC 5.41 10^3/uL (4.4-10.8)
[2024-10-31 09:54] LABS: ALT 47 U/L (16-63); AST 27 U/L (15-37); Albumin 3.7 g/dL (3.4-5.0); Alkaline Phosphatase 96 U/L (46-116); Anion Gap 6.8 mmol/L (3-11); BUN 15 mg/dL (7-18); Bilirubin, Total 1.3 mg/dL (0.2-1.0); CO2 29.2 mmol/L (21.0-32.0); CREATININE 0.8 mg/dL (0.70-1.30); Calcium 9.4 mg/dL (8.5-10.1); Chloride 105 mmol/L (98-107); Estimated GFR 103.22 (mL/min/1.73m2); Glucose 113 mg/dL (74-106); Potassium 4.6 mmol/L (3.5-5.1); Sodium 141 mmol/L (136-145); Total Protein 7.3 g/dL (6.4-8.2)
[2024-10-31] MEDS: Normal Saline - Diluent 50 ML VIAL IJ (10:54)
[2024-10-31] MEDS: Omnipaque 350 MG/ML 100 ML BTL IJ (10:55)
[2024-10-31 18:19] LABS: CEA <0.5 ng/mL (See Note)
== END 2024-10-31 01:25 ==
LOC: DI 01:05
PROVIDERS: PCP Family Medicine; Visit Provider Nurse Practitioner Family
DX: C18.4 Malignant neoplasm of transverse colon (principal)
CPT/HCPCS: 74177; 80053; 71260; 82378; 85025; J3490

== ENCOUNTER 2025-05-02 01:05 | Outpatient (CLI) | payer BC, SELFPAY ==
[2025-05-02 10:38] LABS: Abs Immature Grans 0.02 10^3/uL (0.0-0.06); HCT 45.7 % (40.0-50.0); HGB 15.2 g/dL (13.5-17.5); Immature Grans % 0.4 %; MCH 29.1 pg (27.0-33.0); MCHC 33.3 % (32.0-36.0); MCV 87 fL (80-95); MPV 11.9 fL (8.0-11.0); Platelet Count 133 10^3/uL (130-400); RBC 5.23 10^6/uL (4.36-5.78); RDW 13.0 % (11.8-14.1); RDW-SD 41.5 fL; WBC 5.27 10^3/uL (4.4-10.8)
[2025-05-02 10:53] LABS: ALT 35 U/L (16-63); AST 18 U/L (15-37); Albumin 3.6 g/dL (3.4-5.0); Alkaline Phosphatase 117 U/L (46-116); Anion Gap 6.6 mmol/L (3-11); BUN 12 mg/dL (7-18); Bilirubin, Total 1.1 mg/dL (0.2-1.0); CO2 30.4 mmol/L (21.0-32.0); Calcium 9.0 mg/dL (8.5-10.1); Chloride 102 mmol/L (98-107); Estimated GFR 103.22 (mL/min/1.73m2); Glucose 156 mg/dL (74-106); Potassium 4.7 mmol/L (3.5-5.1); Sodium 139 mmol/L (136-145); Total Protein 7.2 g/dL (6.4-8.2)
[2025-05-02 18:49] LABS: CEA 1.2 ng/mL (See Note)
== END 2025-05-02 01:06 | disposition home or self-care (01) ==
PROVIDERS: PCP Family Medicine; Visit Provider Internal Medicine Hematology & Oncology
DX: C18.2 Malignant neoplasm of ascending colon (principal)
CPT/HCPCS: 36415; 80053; 82378; 85025